=== PATIENT | male | born 1945 | race Two or more races ===

== ENCOUNTER 2018-02-01 06:28 | Inpatient (IN) | payer OTHER ==
[~2018-02-01] VITALS: Ht 157.5 cm; Wt 63.5 kg
[~2018-02-01 06:28] MED LIST: ASA81 MG PO; CARDURA XL4 MG/BOTTL PO; CILOSTAZOL100 MG PO; GLIMEPIRIDE2 MG PO; INTEGRA PLUS C1 EACH PO; JANUVIA100 MG PO; NEURONTIN300 MG PO; OXYC1TAB9 PO; PRAVASTATIN SOD40 MG PO
[2018-02-01] MEDS ORDERED: AMLODIPINE BESYL5 MG (06:38)
[2018-02-01] MEDS ORDERED: DOXAZOSIN MESYLA4 MG (06:38)
[2018-02-01] MEDS ORDERED: RAMIPRIL1.25 MG (06:38)
[2018-02-01] MEDS ORDERED: ROSUVASTATIN CA40 MG (06:38)
== END 2018-02-05 15:43 | disposition home or self-care (01) | DRG 256 ==
LOC: ER 06:28 → MEDI 09:00 → SEC-K 09:00 → MEDI 13:39
PROVIDERS: Specialist
PROC: 0Y6T0Z0 Detachment at Right 3rd Toe, Complete, Open Approach (ICD-10-PCS; principal; 2018-02-02 15:15)
DX: E11.52 Type 2 diabetes mellitus with diabetic peripheral angiopathy with gangrene (principal); I96 Gangrene, not elsewhere classified; E11.622 Type 2 diabetes mellitus with other skin ulcer; E11.65 Type 2 diabetes mellitus with hyperglycemia; L97.524 Non-pressure chronic ulcer of other part of left foot with necrosis of bone; I10 Essential (primary) hypertension; G89.18 Other acute postprocedural pain

== ENCOUNTER 2018-03-17 20:22 | Emergency (ER) | payer OTHER ==
[~2018-03-17] VITALS: Ht 157.5 cm; Wt 67.1 kg
[~2018-03-17 20:22] MED LIST changes: +AMLODIPINE BESYL5 MG; +DOXAZOSIN MESYLA4 MG; +RAMIPRIL1.25 MG; +ROSUVASTATIN CA40 MG
[2018-03-17] MEDS ORDERED: JANUVIA100 MG PO (20:41)
== END 2018-03-17 22:38 | disposition home or self-care (01) ==
LOC: ER 20:22
DX: K31.84 Gastroparesis (principal); R10.13 Epigastric pain; R51 Headache

== ENCOUNTER 2018-11-15 05:09 | Inpatient (IN) | payer OTHER ==
[~2018-11-15] VITALS: Ht 152.4 cm; Wt 64.4 kg
[2018-11-23] MEDS ORDERED: AMLODIPINE BESYL5 MG PO (11:47)
[2018-11-23] MEDS ORDERED: CILOSTAZOL100 MG PO ×2 (11:50→11:58)
[2018-11-23] MEDS ORDERED: ROSUVASTATIN CA40 MG PO (11:50)
[2018-11-23] MEDS ORDERED: JANUVIA100 MG PO (11:50)
[2018-11-23] MEDS ORDERED: GLIMEPIRIDE2 MG PO (11:50)
[2018-11-23] MEDS ORDERED: RAMIPRIL1.25 MG PO (11:50)
[2018-11-23] MEDS ORDERED: DOXAZOSIN MESYLA4 MG PO (11:50)
[2018-11-23] MEDS ORDERED: ELIQUIS5 MG PO (11:58)
[2018-11-23] MEDS ORDERED: INTEGRA F CAPS1 EACH PO (11:59)
[2018-11-23] MEDS ORDERED: VITAMIN C500 M1 PO (12:00)
[2018-11-23] MEDS ORDERED: THIAMINE HCL100 MG PO (12:00)
[2018-11-23] MEDS ORDERED: TOPROL XL25 M1 PO (12:02)
== END 2018-11-22 21:47 | disposition left against medical advice (07) | DRG 255 ==
LOC: ER 05:09 → MEDI 11:53 → SEC-K 11:53 → MEDI 12:52
PROVIDERS: ADMIT Internal Medicine
PROC: 0Y6V0Z0 Detachment at Right 4th Toe, Complete, Open Approach (ICD-10-PCS; principal; 2018-11-17)
PROC: 4A12X4Z Monitoring of Cardiac Electrical Activity, External Approach (ICD-10-PCS; 2018-11-18)
PROC: B246ZZZ Ultrasonography of Right and Left Heart (ICD-10-PCS; 2018-11-18)
DX: E10.52 Type 1 diabetes mellitus with diabetic peripheral angiopathy with gangrene (principal); D61.810 Antineoplastic chemotherapy induced pancytopenia; I96 Gangrene, not elsewhere classified; C34.2 Malignant neoplasm of middle lobe, bronchus or lung; C78.7 Secondary malignant neoplasm of liver and intrahepatic bile duct; I70.361 Atherosclerosis of unspecified type of bypass graft(s) of the extremities with gangrene, right leg; D62 Acute posthemorrhagic anemia; I48.1 Persistent atrial fibrillation; M86.171 Other acute osteomyelitis, right ankle and foot; B96.89 Other specified bacterial agents as the cause of diseases classified elsewhere; B96.7 Clostridium perfringens [C. perfringens] as the cause of diseases classified elsewhere; Z79.4 Long term (current) use of insulin; I10 Essential (primary) hypertension; E10.628 Type 1 diabetes mellitus with other skin complications; L03.031 Cellulitis of right toe; E78.00 Pure hypercholesterolemia, unspecified; E10.43 Type 1 diabetes mellitus with diabetic autonomic (poly)neuropathy; K31.84 Gastroparesis; L97.514 Non-pressure chronic ulcer of other part of right foot with necrosis of bone; Z79.01 Long term (current) use of anticoagulants; D51.3 Other dietary vitamin B12 deficiency anemia; F43.21 Adjustment disorder with depressed mood